=== PATIENT | male | born 1960 | race Caucasian/White ===

== ENCOUNTER 2021-06-07 11:14 | Emergency (ER) | payer OTHER ==
[2021-06-07 12:31] LABS: HEMOGLOBIN 15.7 gm/dl (14.0-17.5); RED BLOOD COUNT 5.16 M/UL (4.20-5.50); WHITE BLOOD COUNT 5.2 K/UL (4.5-11.0)
[2021-06-07 13:00] LABS: BUN/CREATININE RATIO 18 (0-10)
[2021-06-07] MEDS ORDERED: CYCLOBENZAPRINE10 MG PO ×2 (15:22→15:36)
[2021-06-07] MEDS ORDERED: HYDROCODON-ACE1 EAC2 PO (15:23)
== END 2021-06-07 15:47 | disposition home or self-care (01) ==
LOC: ER1 11:14
DX: R07.89 Other chest pain (principal); Z88.5 Allergy status to narcotic agent; V43.52XA Car driver injured in collision with other type car in traffic accident, initial encounter; W22.11XA Striking against or struck by driver side automobile airbag, initial encounter; Y92.410 Unspecified street and highway as the place of occurrence of the external cause
CPT/HCPCS: 70450; 71260; 72125; 72170; 73030; 73060; 73090; 73590; 73600; 73630; 80053; 81001; 82550; 82553; 84484; 85025; 93005; 99284; Q9967